=== PATIENT | male | born 1995 | race African-American/Black ===

== ENCOUNTER 2016-05-25 22:02 | Emergency (ER) | payer SELFPAY ==
--- NOTE | 2016-05-25 22:25 | EDM.PDOC ---
ED HPI GENERAL MEDICAL PROBLEM - General Chief Complaint: Chest Pain Stated Complaint: PT HAS CHEST PAINS Time Seen by Provider: 05/25/16 22:14 - History of Present Illness INITIAL COMMENTS - FREE TEXT/NARRATIVE: HISTORY AND PHYSICAL: History of present illness: The patient is a 20-year-old male with no stated medical problems who presents with complaints of 3 days of right anterior chest wall pain that is constant worse with certain movements and deep breaths. He has had a cough occasionally productive of white phlegm but no blood and he is a smoker on a daily basis. He states that he had this discomfort and has not taken anything for the pain and he states that the chest pain on the right has been constant for the 3 days with waxing and waning intensity but he had a brief episode of left chest pain prior to coming here which has since resolved. He has had no abdominal pain fevers chills vomiting diarrhea and has had no trauma to the area. He hAs no cardiac or pulmonary history. Has no leg pain or swelling and he is an active man Review of systems: As per history of present illness and below otherwise all systems reviewed and negative. Past medical history: As per history of present illness and as reviewed below otherwise noncontributory. Surgical history: As per history of present illness and as reviewed below otherwise noncontributory. Social history: No reported history of drug or alcohol abuse. Family history: As per history of present illness and as reviewed below otherwise noncontributory. Physical exam: General: Well-developed thin man who is nontoxic and speaking clearly and easily in the ED in no distress. Vital signs of reviewed by me HEENT: Atraumatic, normocephalic, negative for conjunctival pallor or scleral icterus, mucous membranes moist, throat clear, neck supple, nontender, trachea midline. Lungs: Clear to auscultation, breath sounds equal bilaterally, chest nontender. There is no chest wall defects or crepitus appreciated Heart: S1S2, regular, negative for clicks, rubs, or JVD. Abdomen: Soft, nondistended, nontender. Negative for masses or hepatosplenomegaly. NABS Genitourinary: Deferred. Rectal: Deferred. Extremities: Atraumatic, negative for cords or calf pain. Neurovascular unremarkable. No pedal edema or leg asymmetry Neuro: Awake, alert, oriented. Cranial nerves II through XII unremarkable. Cerebellum unremarkable. Motor and sensory unremarkable throughout. Exam nonfocal. Diagnostics: EKG chest x-ray Therapeutics: Patient states he is allergic to Motrin so I will not give him Toradol repeat HR= 77 Impression: Chest wall pain strain Definitive disposition and diagnosis as appropriate pending reevaluation and review of above chest Pain Score (Numeric/FACES): 6 - Related Data Allergies Allergy/AdvReac Type Severity Reaction Status Date / Time ibuprofen [From Motrin] Allergy Hives Verified 05/25/16 23:17 Home Meds: Home Meds . [No Known Home Meds] 01/10/16 [History] Past Medical History - Past Health History Medical/Surgical History: Denies Medical/Surgical History HEENT History: Reports: None Cardiovascular History: Reports: None Respiratory History: Reports: Asthma Gastrointestinal History: Reports: None Genitourinary History: Reports: None Musculoskeletal History: Reports: None Neurological History: Reports: None Psychiatric History: Reports: None Endocrine/Metabolic History: Reports: None Hematologic History: Reports: None Oncologic (Cancer) History: Reports: None Dermatologic History: Reports: None - Infectious Disease History Infectious Disease History: Reports: None Social & Family History - Family History Family Medical History: Noncontributory - Tobacco Use Smoking Status *Q: Current Every Day Smoker Years of Tobacco use: 5 Packs/Tins Daily: 0.5 Second Hand Smoke Exposure: Yes - Recreational Drug Use Recreational Drug Use: Yes Drug Use in Last 12 Months: Yes Recreational Drug Type: Reports: Marijuana/Hashish Recreational Drug Use Frequency: Binges ED ROS GENERAL - Review of Systems Review Of Systems: ROS reveals no pertinent complaints other than HPI. ED EXAM, GENERAL - Physical Exam Exam: See Below (See dictation) Course - Vital Signs Last Recorded V/S: Last Vital Signs Temp 36.9 C 05/25/16 22:37 Pulse Resp 16 05/25/16 22:37 BP Pulse Ox 97 05/25/16 22:37 - Orders/Labs/Meds Orders: Active Orders 24 hr Category Date Time Status EKG 12 Lead [EKG Documentation Completion] [RC] STAT Care 05/25/16 22:41 Active Chest 2V [CR] Stat Exams 05/25/16 22:22 Taken Departure - Departure Time of Disposition: 23:17 Disposition: Home, Self-Care 01 Condition: good Clinical Impression: Right-sided chest wall pain Referrals: PCP,None [Primary Care Provider] - Forms: ED Department Discharge Additional Instructions: The following information is given to patients seen in the emergency department who are being discharged to home. This information is to outline your options for follow-up care. We provide all patients seen in our emergency department with a follow-up referral. The need for follow-up, as well as the timing and circumstances, are variable depending upon the specifics of your emergency department visit. If you don't have a primary care physician on staff, we will provide you with a referral. We always advise you to contact your personal physician following an emergency department visit to inform them of the circumstance of the visit and for follow-up with them and/or the need for any referrals to a consulting specialist. The emergency department will also refer you to a specialist when appropriate. This referral assures that you have the opportunity for followup care with a specialist. All of these measure are taken in an effort to provide you with optimal care, which includes your followup. Under all circumstances we always encourage you to contact your private physician who remains a resource for coordinating your care. When calling for followup care, please make the office aware that this follow-up is from your recent emergency room visit. If for any reason you are refused follow-up, please contact the [facility] emergency department at and ask to speak to the emergency department charge nurse. [facility] Primary care- Internal Medicine and Family [address] [id number] Use [id number] Tylenol for pain and apply ice for inflammation and discomfort after activities. Please call and followup with primary care physician for further care and evaluation and return to ER as needed and as discussed. Please try to reduce and/or quit tobacco use - My Orders Last 24 Hours: My Active Orders 05/25/16 22:22 Chest 2V [CR] Stat 05/25/16 22:41 EKG 12 Lead [EKG Documentation Completion] [RC] STAT - Assessment/Plan Last 24 Hours: My Active Orders 05/25/16 22:22 Chest 2V [CR] Stat 05/25/16 22:41 EKG 12 Lead [EKG Documentation Completion] [RC] STAT
[2016-05-25 23:26] VITALS: BP 111/63
--- NOTE | 2016-05-26 18:53 | CR ---
EXAM DATE: 05/25/16 PATIENT'S AGE: 20 Patient: ELDER PALOMINO Facility: [place], [place] Site . Site : 1995 Study: XRay Chest [id number]/15/2017 10:58:43 PM Ordering Physician: Nona Soni Final Report: INDICATION: chest pain TECHNIQUE: Chest 2 views. COMPARISON: 07/08/15 FINDINGS: Cardiovascular and mediastinum: Heart size and vasculature are normal in caliber and appearance. Mediastinum is within normal limits. Lungs and pleural spaces: Lungs are clear. No sign of infiltrate or mass. No sign of pleural effusion. No pneumothorax. Bones and soft tissues: No significant findings. IMPRESSION: Unremarkable chest. Dictated by: Farrukh Gallo MD @ 05/25/2016 23:09:47 (Electronic Signature) Report Signed by Proxy and Original Signed Document filed in the Medical Record. [facility]
== END 2016-05-25 23:25 | disposition home or self-care (01) ==
LOC: MW.ED 22:02
DX: S29.011A Strain of muscle and tendon of front wall of thorax, initial encounter (principal); F17.210 Nicotine dependence, cigarettes, uncomplicated; X58.XXXA Exposure to other specified factors, initial encounter
CPT/HCPCS: 71020; 71020-26; 93005; 99283; 99285-25

== ENCOUNTER 2016-09-05 13:09 | Emergency (ER) | payer SELFPAY ==
[2016-09-05] MEDS ORDERED: Sodium Chloride 0.9% 1,000 ML IV ONE (13:40)
[2016-09-05] MEDS ORDERED: Ondansetron 4 MG/2 ML SDV IVPUSH ONE ×2 (13:40→14:45)
--- NOTE | 2016-09-05 13:40 | EDM.PDOC ---
ED HPI GENERAL MEDICAL PROBLEM - General Chief Complaint: Gastrointestinal Problem Stated Complaint: VOMITING Time Seen by Provider: 09/05/16 13:40 Source of Information: Reports: Patient History Limitations: Reports: No Limitations - History of Present Illness INITIAL COMMENTS - FREE TEXT/NARRATIVE: HISTORY AND PHYSICAL: History of present illness: [Comes to the emergency room complaining of nausea and vomiting for the past 4- 5 days. Last episode of vomiting was earlier this morning. Had one episode of diarrhea while in the waiting room. Admits to blood in both stools and vomitus. He felt warm at times but has not checked his temperature. No sore throat, runny nose, headache. Had a headache 3 days ago. This resolved completely with Excedrin. Appetite is diminished. No burning with urination, urinary frequency, hematuria or penile discharge. Denies muscle and joint aches and pains. He is otherwise healthy and has no other complaints or concerns. Has not taken any medications for his symptoms.] Review of systems: As per history of present illness and below otherwise all systems reviewed and negative. Past medical history: As per history of present illness and as reviewed below otherwise noncontributory. Surgical history: As per history of present illness and as reviewed below otherwise noncontributory. Social history: No reported history of drug or alcohol abuse. Family history: As per history of present illness and as reviewed below otherwise noncontributory. Physical exam: HEENT: Atraumatic, normocephalic. Mucous membranes appear dry but are pink. Conjunctiva clear. Neck supple, no lymphadenopathy. Lungs: Clear to auscultation, breath sounds equal bilaterally, no wheezing crackles or rales. Heart: S1S2, regular rate and rhythm. No murmur gallop click or rub. Abdomen: Bowel sounds are normoactive throughout. Soft, nondistended. Mild mid abdominal tenderness with palpation. No guarding masses or rebound. Negative for costovertebral tenderness. Pelvis: Stable nontender. Genitourinary: Deferred. Rectal: Normal sphincter tone. No hemorrhoids appreciated. SFOB negative. Extremities: Atraumatic, no swelling, cyanosis or deformity noted. Neurovascular unremarkable. Neuro: Awake, alert, oriented. Motor and sensory unremarkable throughout. Exam nonfocal. Diagnostics: [CBC, CMP, urinalysis, amylase, lipase] Therapeutics: [1 L normal saline IV, Zofran 4 mg IV] Impression: [nausea & vomiting] Plan: [Discussed w/ patieint that his lab results are WNL, and show no anemia or infection. Symptoms may be caused from a viral illness. Recommend pushing fluids , rest, and that illness is self-limiting. Rx given for Zofran ODT 4mg (#10) sig : 1 po q 6-8 hours prn nausea 0 RF's. Pt is in agreement w/ today's plan. Establish with a local PCP.] Definitive disposition and diagnosis as appropriate pending reevaluation and review of above. abd Pain Score (Numeric/FACES): 4 - Related Data Allergies Allergy/AdvReac Type Severity Reaction Status Date / Time ibuprofen [From Motrin] Allergy Hives Verified 09/05/16 13:20 Home Meds: Home Meds . [No Known Home Meds] 01/10/16 [History] Past Medical History - Past Health History Medical/Surgical History: Denies Medical/Surgical History HEENT History: Reports: None Cardiovascular History: Reports: None Respiratory History: Reports: Asthma Gastrointestinal History: Reports: None Genitourinary History: Reports: None Musculoskeletal History: Reports: None Neurological History: Reports: None Psychiatric History: Reports: None Endocrine/Metabolic History: Reports: None Hematologic History: Reports: None Oncologic (Cancer) History: Reports: None Dermatologic History: Reports: None - Infectious Disease History Infectious Disease History: Reports: None Social & Family History - Family History Family Medical History: Noncontributory - Tobacco Use Smoking Status *Q: Current Every Day Smoker Years of Tobacco use: 8 Packs/Tins Daily: 0.5 Second Hand Smoke Exposure: Yes - Recreational Drug Use Recreational Drug Use: Yes Drug Use in Last 12 Months: Yes Recreational Drug Type: Reports: Marijuana/Hashish Recreational Drug Use Frequency: Daily ED ROS GENERAL - Review of Systems Review Of Systems: ROS reveals no pertinent complaints other than HPI. ED EXAM, GI/ABD - Physical Exam Exam: See Below Course - Vital Signs Last Recorded V/S: Last Vital Signs Temp 98.8 F 09/05/16 15:25 Pulse 80 09/05/16 15:25 Resp 18 09/05/16 15:25 BP 119/62 09/05/16 15:25 Pulse Ox 97 09/05/16 15:25 - Orders/Labs/Meds Orders: Active Orders 24 hr Category Date Time Status OCCULT BLOOD SCREEN [OP] Stat Lab 09/05/16 15:07 Ordered Labs: Laboratory Tests 09/05/16 09/05/16 09/05/16 Range/Units 13:30 13:30 13:39 WBC 5.11 (4.0-11.0) K/uL RBC 5.97 H (4.50-5.90) M/uL Hgb 17.1 H (13.0-17.0) g/dL Hct 49.4 (38.0-50.0) % MCV 82.7 (80.0-98.0) fL MCH 28.6 (27.0-32.0) pg MCHC 34.6 (31.0-37.0) g/dL RDW Std Deviation 43.5 (28.0-62.0) fl RDW Coeff of Amaris 14 (11.0-15.0) % Plt Count 248 (150-400) K/uL MPV 10.10 (7.40-12.00) fL Neut % (Auto) 52.1 (48.0-80.0) % Lymph % (Auto) 35.2 (16.0-40.0) % [place] % (Auto) 9.4 (0.0-15.0) % Eos % (Auto) 2.3 (0.0-7.0) % Baso % (Auto) 1.0 (0.0-1.5) % Neut # (Auto) 2.7 (1.4-5.7) K/uL Lymph # (Auto) 1.8 (0.6-2.4) K/uL [place] # (Auto) 0.5 (0.0-0.8) K/uL Eos # (Auto) 0.1 (0.0-0.7) K/uL Baso # (Auto) 0.1 (0.0-0.1) K/uL Nucleated RBC % 0.0 /100WBC Nucleated RBCs # 0 K/uL Sodium 141 (136-146) mmol/L Potassium 4.1 (3.5-5.1) mmol/L Chloride 106 (98-110) mmol/L Carbon Dioxide 25 (21-31) mmol/L BUN 13 (6.0-23.0) mg/dL Creatinine 1.1 (0.6-1.5) mg/dL Est Cr Clr Drug Dosing 100.97 mL/min Estimated GFR (MDRD) > 60.0 ml/min Glucose 101 (60-110) mg/dL Calcium 9.8 (8.8-10.8) mg/dL Total Bilirubin 0.9 (0.1-1.5) mg/dL AST 17 (5-40) IU/L ALT 12 (8-54) IU/L Alkaline Phosphatase 66 (40-150) Total Protein 7.7 (6.0-8.0) g/dL Albumin 4.4 (3.5-5.0) g/dL Globulin 3.3 (2.0-3.5) g/dL Albumin/Globulin Ratio 1.3 (1.3-2.8) Amylase 59 (10-90) U/L Lipase 27 (7-80) U/L Urine Color YELLOW Urine Appearance CLEAR Urine pH 8.0 (5.0-8.0) Ur Specific [place] 1.015 (1.001-1.035) Urine Protein TRACE (NEGATIVE) mg/dL Urine Glucose (UA) NEGATIVE (NEGATIVE) mg/dL Urine Ketones NEGATIVE (NEGATIVE) mg/dL Urine Occult Blood NEGATIVE (NEGATIVE) Urine Nitrite NEGATIVE (NEGATIVE) Urine Bilirubin NEGATIVE (NEGATIVE) Urine Urobilinogen 0.2 (<2.0) EU/dL Ur Leukocyte Esterase TRACE (NEGATIVE) Urine RBC 0-2 (0-2/HPF) Urine WBC 4-6 (0-5/HPF) Ur Epithelial Cells RARE (NONE-FEW) Urine Bacteria FEW (NEGATIVE) Urine Mucus LIGHT (NONE-MOD) Meds: Medications Discontinued Medications Generic Name Dose Route Start Last Admin Trade Name Freq PRN Reason Stop Dose Admin Sodium Chloride 1,000 mls @ 999 mls/hr 09/05/16 13:40 09/05/16 14:08 Normal Saline IV 09/05/16 14:40 999 mls/hr STAT ONE Administration Ondansetron HCl 4 mg 09/05/16 13:40 09/05/16 14:09 Zofran IVPUSH 09/05/16 13:41 4 mg ONETIME ONE Administration Ondansetron HCl 4 mg 09/05/16 14:45 09/05/16 15:06 Zofran IVPUSH 09/05/16 14:46 4 mg ONETIME ONE Administration Departure - Departure Time of Disposition: 15:15 Disposition: Home, Self-Care 01 Condition: Good Clinical Impression: Nausea & vomiting Qualifiers: Vomiting type: unspecified Vomiting Intractability: non-intractable Qualified Code(s): R11.2 - Nausea with vomiting, unspecified - Discharge Information Instructions: Nausea, Adult Referrals: PCP,None [Primary Care Provider] - Forms: ED Department Discharge Additional Instructions: The following information is given to patients seen in the emergency department who are being discharged to home. This information is to outline your options for follow-up care. We provide all patients seen in our emergency department with a follow-up referral. The need for follow-up, as well as the timing and circumstances, are variable depending upon the specifics of your emergency department visit. If you don't have a primary care physician on staff, we will provide you with a referral. We always advise you to contact your personal physician following an emergency department visit to inform them of the circumstance of the visit and for follow-up with them and/or the need for any referrals to a consulting specialist. The emergency department will also refer you to a specialist when appropriate. This referral assures that you have the opportunity for follow-up care with a specialist. All of these measure are taken in an effort to provide you with optimal care, which includes your follow-up. Under all circumstances we always encourage you to contact your private physician who remains a resource for coordinating your care. When calling for follow-up care, please make the office aware that this follow-up is from your recent emergency room visit. If for any reason you are refused follow-up, please contact the [facility] emergency department at and asked to speak to the emergency department charge nurse. [facility] Primary Care [address] [place] [id number] Establish care and follow-up with a local primary care provider in the next 48- 72 hours. Push fluids, get plenty of rest. Return to ER as needed as discussed. - My Orders Last 24 Hours: My Active Orders 09/05/16 15:07 OCCULT BLOOD SCREEN [OP] Stat - Assessment/Plan Last 24 Hours: My Active Orders 09/05/16 15:07 OCCULT BLOOD SCREEN [OP] Stat
[2016-09-05 13:59] LABS: CHLORIDE,CL 106 mmol/L (98-110); SODIUM,NA 141 mmol/L (136-146)
[2016-09-05 15:27] VITALS: BP 119/62
== END 2016-09-05 15:29 | disposition home or self-care (01) ==
LOC: MW.ED 13:09
DX: R11.2 Nausea with vomiting, unspecified (principal); J45.909 Unspecified asthma, uncomplicated; F17.210 Nicotine dependence, cigarettes, uncomplicated; Z88.1 Allergy status to other antibiotic agents
CPT/HCPCS: 36415; 80053; 81001; 82150; 83690; 85025; 96361; 96374; 96376; 99284; J2405; J7040; 99283